=== PATIENT | male | born 1955 | race Caucasian/White ===

== ENCOUNTER 2016-09-18 10:11 | Outpatient (RCR) | payer MEDICARE ==
--- OUTSIDE RECORDS SUMMARY | 2016-09-12 10:10 | XMS REPORT | Continuity of Care Document ---
Author Author [facility] Organization [facility] Address Unknown Phone Unavailable Care Team Providers Care Drying Tunnel Operator Name Role Phone Ani Bowen PCP [phone] Source Comments Some departments are not documenting in the electronic medical record. If you do not see the information that you expected, contact Release of Information in the Health Information Management department at [phone] for further assistance in locating additional records.[facility] Active Allergies and Adverse Reactions Allergen Noted Date Severity Reactions Comments Asa 05/13/2014 RASH, SEE COMMENTS Facial swelling Current Medications Prescription Sig. Disp. Refills Start End Date Status Date diltiazem CD (CARDIZEM Take 180 mg by mouth Active CD) 180 mg capsule daily. gabapentin (NEURONTIN) Take 1 Cap by mouth three 90 Cap 0 01/03/20 Active 300 mg capsule times daily. 15 ketoconazole (NIZORAL) 2 Apply to affected area 30 g 3 11/29/20 Active % topical cream twice daily. Use on scaly 15 rash on face. Active Problems Problem Noted Date Malignant neoplasm of prostate (HCC) 09/07/2014 Bladder cancer (HCC) 05/13/2014 Overview: March 2014 - multiple episodes of painless gross hematuria 04/27/14 - CT abd/pel - 3.8x2.2cm anterior bladder mass, several enlarged iliac LN, largest 4.0x3.7cm 05/13/14 - Complete metastatic work up. 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 Hernandez 08/02/14 - CT C/A/P final read pending, PAT pending 08/25/14 - Radical cystoprostatectomy with ileal conduit; T0N0 09/19/14 - Postoperative visit: Cr. 0.79 01/2015 - CXR wnl; Hgb improving; CMP wnl Cr=0.88 L ast Assessment & Plan: - Follow up as needed with his outside oncologist Immunizations Name Dates Previously Given Next Due Flu Vaccine 08/26/2014 Quadrivalent=>3 Yo (Preservative Free) Social History Tobacco Use Types Packs/Day Years Used Date Former Smoker Cigarettes 1 35 Quit: 05/18/2007 Smokeless Tobacco: Former Chew Quit: User 04/17/2014 Alcohol Use Drinks/Week oz/Week Comments Yes 0.0 6-10 beers daily Last Filed Vital Signs Vital Sign Reading Time Taken Blood Pressure 130/82 02/07/2015 9:56 AM CDT Pulse 80 02/07/2015 9:56 AM CDT Temperature 36.7 C (98.1 F) 08/30/2014 3:24 PM CDT Respiratory Rate 14 02/07/2015 9:56 AM CDT Height 1.829 m (6') 11/29/2015 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
[2016-09-12 10:38] LABS: BASOPHILS % (AUTO) 1 % (0-10); EOSINOPHILS # (AUTO) 0.3 10^3/uL (0.0-0.3); EOSINOPHILS % (AUTO) 5 % (0-10); LYMPHOCYTES # (AUTO) 1.1 X 10^3 (1.0-4.0); LYMPHOCYTES % (AUTO) 20 % (12-44); MEAN CORPUSCULAR HEMOGLOBIN 32 PG (25-34); MEAN CORPUSCULAR HGB CONC 33 G/DL (32-36); MEAN CORPUSCULAR VOLUME 97 FL (80-99); MEAN PLATELET VOLUME 9.6 FL (7.4-10.4); MONOCYTES # (AUTO) 0.7 X 10^3 (0.0-1.0); MONOCYTES % (AUTO) 13 % (0-12); NEUTROPHILS # (AUTO) 3.4 X 10^3 (1.8-7.8); NEUTROPHILS % (AUTO) 61 % (42-75); PLATELET COUNT 200 10^3/uL (130-400); RED BLOOD COUNT 4.26 10^6/uL (4.35-5.85); RED CELL DISTRIBUTION WIDTH 13.4 % (10.0-14.5); WHITE BLOOD COUNT 5.5 10^3/uL (4.3-11.0)
[2016-09-12 11:08] LABS: ALANINE AMINOTRANSFERASE 33 U/L (0-55); ALBUMIN 4.2 G/DL (3.2-4.5); ANION GAP 9 MMOL/L (5-14); ASPARTATE AMINO TRANSFERASE 24 U/L (5-34); BILIRUBIN,TOTAL 0.5 MG/DL (0.1-1.0); BLOOD UREA NITROGEN 10 MG/DL (7-18); BUN/CREATININE RATIO 10; CALCIUM 9.4 MG/DL (8.5-10.1); CARBON DIOXIDE 28 MMOL/L (21-32); CHLORIDE 104 MMOL/L (98-107); CREATININE SERUM 0.96 MG/DL (0.60-1.30); GFR ESTIMATED > 60; GLUCOSE 97 MG/DL (70-105); LACTATE DEHYDROGENASE 178 U/L (125-220); POTASSIUM 4.5 MMOL/L (3.6-5.0); SODIUM 141 MMOL/L (135-145); TOTAL PROTEIN 7.6 G/DL (6.4-8.2)
[~2016-09-18 10:11] MED LIST: DCS100C PO; DILT120C PO; DILT180C PO; FURO40TA4 PO; GABA-488 PO; HYDR-3454 PO; OMEP20CA12 PO; SORB1SOL2 PO; TRAM50TA2 PO
== END 2016-12-11 | disposition home or self-care (01) ==
LOC: ONC 10:11
PROVIDERS: ATTEND Internal Medicine Hematology & Oncology
DX: Z08 Encounter for follow-up examination after completed treatment for malignant neoplasm (principal); Z85.51 Personal history of malignant neoplasm of bladder; Z85.46 Personal history of malignant neoplasm of prostate; K43.5 Parastomal hernia without obstruction or gangrene; R42 Dizziness and giddiness; Z92.21 Personal history of antineoplastic chemotherapy; Z92.3 Personal history of irradiation
CPT/HCPCS: 36415; 80053; 83615; 84153; 85025; 99213

== ENCOUNTER 2017-03-26 13:41 | Outpatient (RCR) | payer MEDICARE ==
[2017-03-26 13:51] LABS: BASOPHILS # (AUTO) 0.1 10^3/uL (0.0-0.1); BASOPHILS % (AUTO) 1 % (0-10); EOSINOPHILS # (AUTO) 0.3 10^3/uL (0.0-0.3); EOSINOPHILS % (AUTO) 5 % (0-10); LYMPHOCYTES # (AUTO) 1.3 X 10^3 (1.0-4.0); LYMPHOCYTES % (AUTO) 23 % (12-44); MEAN CORPUSCULAR HEMOGLOBIN 32 PG (25-34); MEAN CORPUSCULAR HGB CONC 33 G/DL (32-36); MEAN CORPUSCULAR VOLUME 98 FL (80-99); MEAN PLATELET VOLUME 9.9 FL (7.4-10.4); MONOCYTES # (AUTO) 0.9 X 10^3 (0.0-1.0); MONOCYTES % (AUTO) 16 % (0-12); NEUTROPHILS # (AUTO) 3.1 X 10^3 (1.8-7.8); NEUTROPHILS % (AUTO) 55 % (42-75); PLATELET COUNT 215 10^3/uL (130-400); RED BLOOD COUNT 4.41 10^6/uL (4.35-5.85); WHITE BLOOD COUNT 5.7 10^3/uL (4.3-11.0)
[2017-03-26 14:27] LABS: ALANINE AMINOTRANSFERASE 38 U/L (0-55); ANION GAP 10 MMOL/L (5-14); ASPARTATE AMINO TRANSFERASE 28 U/L (5-34); BILIRUBIN,TOTAL 0.3 MG/DL (0.1-1.0); BLOOD UREA NITROGEN 10 MG/DL (7-18); BUN/CREATININE RATIO 10; CALCIUM 9.2 MG/DL (8.5-10.1); CARBON DIOXIDE 27 MMOL/L (21-32); CHLORIDE 104 MMOL/L (98-107); CREATININE SERUM 1.05 MG/DL (0.60-1.30); GFR ESTIMATED > 60; GLUCOSE 81 MG/DL (70-105); LACTATE DEHYDROGENASE 189 U/L (125-220); POTASSIUM 4.3 MMOL/L (3.6-5.0); SODIUM 141 MMOL/L (135-145); TOTAL PROTEIN 7.4 G/DL (6.4-8.2)
== END 2017-06-24 | disposition home or self-care (01) ==
LOC: ONC 13:41
PROVIDERS: ATTEND Internal Medicine Hematology & Oncology
DX: Z08 Encounter for follow-up examination after completed treatment for malignant neoplasm (principal); Z85.51 Personal history of malignant neoplasm of bladder; Z85.46 Personal history of malignant neoplasm of prostate; K43.5 Parastomal hernia without obstruction or gangrene; R42 Dizziness and giddiness; Z92.21 Personal history of antineoplastic chemotherapy; Z92.3 Personal history of irradiation
CPT/HCPCS: 36415; 80053; 83615; 85025; 99213

== ENCOUNTER 2017-09-09 09:45 | Outpatient (RCR) | payer MEDICARE ==
[~2017-09-09 09:45] MED LIST changes: -BARIUM SUSPENSION 2.1% (VANILLA SILQ) 450 ML PO ONE; -CATHETER FLUSH 10 ML SYR IV PRN; -IOHEXOL 350 MG/ML 100 ML (OMNIPAQUE 350) VIAL IV ONE; -NS 100 ML (IVPB) BAG IV ONE
[2017-09-09 10:35] LABS: BASOPHILS % (AUTO) 1 % (0-10); EOSINOPHILS # (AUTO) 0.2 10^3/uL (0.0-0.3); EOSINOPHILS % (AUTO) 3 % (0-10); HEMATOCRIT 42 % (40-54); HEMOGLOBIN 14.4 G/DL (13.3-17.7); LYMPHOCYTES # (AUTO) 1.1 X 10^3 (1.0-4.0); LYMPHOCYTES % (AUTO) 20 % (12-44); MEAN CORPUSCULAR HEMOGLOBIN 34 PG (25-34); MEAN CORPUSCULAR HGB CONC 34 G/DL (32-36); MEAN CORPUSCULAR VOLUME 98 FL (80-99); MEAN PLATELET VOLUME 9.8 FL (7.4-10.4); MONOCYTES # (AUTO) 0.7 X 10^3 (0.0-1.0); MONOCYTES % (AUTO) 12 % (0-12); NEUTROPHILS # (AUTO) 3.8 X 10^3 (1.8-7.8); NEUTROPHILS % (AUTO) 64 % (42-75); PLATELET COUNT 218 10^3/uL (130-400); RED BLOOD COUNT 4.29 10^6/uL (4.35-5.85); RED CELL DISTRIBUTION WIDTH 12.8 % (10.0-14.5); WHITE BLOOD COUNT 5.9 10^3/uL (4.3-11.0)
[2017-09-09 10:55] LABS: ALANINE AMINOTRANSFERASE 38 U/L (0-55); ALBUMIN 3.9 GM/DL (3.2-4.5); ALKALINE PHOSPHATASE 72 U/L (40-136); BILIRUBIN,TOTAL 0.5 MG/DL (0.1-1.0); BUN/CREATININE RATIO 7; CALCIUM 9.3 MG/DL (8.5-10.1); CARBON DIOXIDE 31 MMOL/L (21-32); CHLORIDE 102 MMOL/L (98-107); CREATININE SERUM 0.95 MG/DL (0.60-1.30); GFR ESTIMATED > 60; GLUCOSE 101 MG/DL (70-105); POTASSIUM 4.6 MMOL/L (3.6-5.0); SODIUM 140 MMOL/L (135-145); TOTAL PROTEIN 7.8 GM/DL (6.4-8.2)
== END 2017-12-08 | disposition home or self-care (01) ==
LOC: ONC 09:45
PROVIDERS: ATTEND Internal Medicine Hematology & Oncology
DX: C67.4 Malignant neoplasm of posterior wall of bladder (principal)
CPT/HCPCS: 36415; 80053; 83615; 85025

== ENCOUNTER → 2017-09-09 | Outpatient (CLI) | payer MEDICARE ==
[~2017-09-09] MED LIST changes: +BARIUM SUSPENSION 2.1% (VANILLA SILQ) 450 ML PO ONE; +CATHETER FLUSH 10 ML SYR IV PRN; +IOHEXOL 350 MG/ML 100 ML (OMNIPAQUE 350) VIAL IV ONE; +NS 100 ML (IVPB) BAG IV ONE
--- NOTE | 2017-09-09 15:21 | Diagnostic Imaging Report ---
Whole body bone scan. Technique: After the intravenous administration of 27.1 mCi of Technetium 99m MDP, whole body delayed phase bone scan images were obtained with lateral views of the head and neck and the chest regions. Indication: Bladder cancer. COMPARISON: 09/12/2016 Findings: There is normal distribution of the tracer in the osseous structures with mild superimposed areas of degenerative pattern in the shoulders, and SI joints as well as in the spine similar to the previous exam. There is no intense areas of increased radiotracer uptake particularly within the axial skeleton to suggest osseous metastasis. Activity in the stoma in the right lower quadrant and in the kidneys is noted. The bladder has been removed. IMPRESSION: No scintigraphic evidence of osseous metastasis. Dictated by: Dictated on workstation # [id number]
--- NOTE | 2017-09-09 16:18 | Diagnostic Imaging Report ---
PROCEDURE: CT chest, abdomen, and pelvis with contrast. TECHNIQUE: Multiple contiguous axial images were obtained through the chest, abdomen, and pelvis after the administration of intravenous contrast. INDICATION: Bladder cancer. 100 mL of Omnipaque 350 is administered intravenously. COMPARISON: 09/12/2016 exam. FINDINGS: CT CHEST: No significant consolidation, mass or suspicious nodule is seen in the lungs. The heart size is normal. There is normal caliber of the thoracic aorta. No mediastinal, hilar or axillary lymphadenopathy is seen. No pleural or pericardial effusion. There is no mediastinal mass. Prominent coronary artery atherosclerotic calcifications are seen. The osseous structures demonstrate degenerative changes. No suspicious mass. Old fractures along the left posterior lateral upper to mid ribs are seen. CT ABDOMEN AND PELVIS: The liver demonstrates diffuse fatty infiltration. There is no focal mass. Cholecystectomy clips are seen. The spleen is not enlarged. The adrenal glands and the pancreas appear unremarkable. The kidneys have symmetric enhancement and contrast excretion. There is no hydronephrosis. The ureters are redirected with anastomosis into an ileal conduit that empties into a right lower quadrant stoma. The stoma has a sizable bowel-containing parastomal hernia. No bowel obstruction. Post radical cystectomy changes are seen in the pelvis. There is also evidence of prior lymph node dissection in the pelvis with surgical clips along the iliac vessels seen. No evidence of tumor recurrence or lymphadenopathy in the pelvis or in the abdomen is seen. The osseous structures demonstrate degenerative changes in the lower lumbar spine and fusion of SI joints. No suspicious mass. IMPRESSION: CT CHEST: No evidence of metastasis. CT ABDOMEN AND PELVIS: 1. Post cystectomy changes with right lower quadrant, with an ileal conduit emptying through a right lower quadrant stoma is seen. 2. Moderate-sized right parastomal hernia containing nonobstructed small bowel loops seen. 3. No evidence of metastasis or tumor recurrence. 4. Diffuse hepatic steatosis. Dictated by: Dictated on workstation # [id number]
== END ==
LOC: CARD 10:30
PROVIDERS: ATTEND Nurse Practitioner Adult Health
DX: C67.4 Malignant neoplasm of posterior wall of bladder (principal)
CPT/HCPCS: 71260; 74177; 78306